=== PATIENT | female | born 1955 | race Asian ===

== ENCOUNTER 2017-06-10 01:17 | Emergency (ER) | payer SELFPAY ==
[~2017-06-10] VITALS: Ht 167.6 cm; Wt 68.0 kg
[2017-06-10 02:19] LABS: BASOPHILS % 0.9 % (0.0-2.0); EOSINOPHILS % 3.5 % (0.0-5.0); HEMATOCRIT. 39.8 % (36.0-48.0); HEMOGLOBIN. 13.1 g/dL (12.0-16.0); LYMPHOCYTES % 38.8 % (20.0-50.0); MEAN CORPUSCULAR HEMOGLOBIN 30.6 pg (28.0-32.0); MEAN CORPUSCULAR VOLUME 93.4 fL (81.0-99.0); MONOCYTES % 11.6 % (2.0-8.0); NEUTROPHILS % 45.2 % (40.0-76.0); PLATELET 219 x1000/uL (130-400); RED BLOOD CELL COUNT 4.27 mill/uL (4.2-5.4)
[2017-06-10 02:37] LABS: CHLORIDE 109 mEq/L (98-107)
[2017-06-10 04:09] VITALS: BP 128/72
== END 2017-06-10 04:34 | disposition home or self-care (01) ==
LOC: ER 01:17
DX: R10.9 Unspecified abdominal pain (principal); I10 Essential (primary) hypertension
CPT/HCPCS: 36415; 80053; 83690; 85025; 93005; 99285; Z7610

== ENCOUNTER 2018-11-06 21:19 | Emergency (ER) | payer OTHER ==
[~2018-11-06] VITALS: Ht 170.2 cm; Wt 77.0 kg
[2018-11-06] MEDS ORDERED: CLONIDINE 0.1MG TABLET PO ONE (22:15)
[2018-11-06] MEDS ORDERED: ACETAMINOPHEN 500MG TABLET PO ONE (22:15)
[2018-11-06 23:40] LABS: EOSINOPHILS % 5.4 % (0.0-5.0); HEMATOCRIT. 39.7 % (36.0-48.0); HEMOGLOBIN. 13.4 g/dL (12.0-16.0); LYMPHOCYTES % 36.3 % (20.0-50.0); MEAN CORPUSCULAR HEMOGLOBIN 32.1 pg (28.0-32.0); MEAN CORPUSCULAR VOLUME 95.1 fL (81.0-99.0); MEAN PLATELET VOLUME 7.4 fl (7.4-10.4); MONOCYTES % 9.7 % (2.0-8.0); NEUTROPHILS % 47.6 % (40.0-76.0); PLATELET 211 x1000/uL (130-400); RED BLOOD CELL COUNT 4.17 mill/uL (4.2-5.4); RED CELL DISTRIBUTION WIDTH 14.2 % (11.6-14.6)
[2018-11-06 23:46] LABS: CHLORIDE 108 mEq/L (98-107)
[2018-11-06 23:56] LABS: CREATINE KINASE MB FRACTION 2.5 ng/mL (0.5-3.6)
[2018-11-07 00:06] LABS: CLARITY URINE CLEAR (CLEAR); COLOR URINE YELLOW (YELLOW); KETONES URINE NEGATIVE (NEGATIVE); LEUKOCYTE ESTERASE URINE 1+ (NEGATIVE); NITRITE URINE NEGATIVE (NEGATIVE); OCCULT BLOOD URINE NEGATIVE (NEGATIVE); PROTEIN URINE NEGATIVE (NEGATIVE); SPECIFIC GRAVITY URINE 1.004 (1.005-1.030); UROBILINOGEN URINE 0.2 E.U./dL (0.2-1.0)
[2018-11-07 01:04] VITALS: BP 159/68
== END 2018-11-07 01:20 | disposition home or self-care (01) ==
LOC: ER 21:19
DX: I10 Essential (primary) hypertension (principal)
CPT/HCPCS: 36415; 80048; 81003; 82553; 83880; 84484; 93005; 99284